=== PATIENT | female | born 1975 | race Caucasian/White ===

== ENCOUNTER 2020-10-09 03:04 | Outpatient (CLI) | payer SELFPAY ==
[2020-10-10 01:11] LABS: COVID-19 RT-PCR UVMMC Result Negative (Negative)
== END 2020-10-09 03:05 | disposition home or self-care (01) ==
LOC: LBO 03:05
PROVIDERS: Visit Provider Nurse Practitioner Family
DX: Z20.822 Contact with and (suspected) exposure to COVID-19 (principal)
CPT/HCPCS: U0003

== ENCOUNTER 2020-12-19 03:29 | Outpatient (CLI) | payer OTHER, SELFPAY ==
[2020-12-19 12:08] LABS: HCG Quant, Pregnancy 1 mIU/mL (1-3); TSH (W/Ref FT4) 2.85 uIU/mL (0.36-3.74)
[2020-12-19 18:31] LABS: FSH 5.9 mIU/mL (See Note); Prolactin 27.3 ng/mL (See Table)
== END 2020-12-19 03:30 | disposition home or self-care (01) ==
LOC: LBO 03:29
PROVIDERS: Visit Provider Obstetrics & Gynecology
DX: N93.8 Other specified abnormal uterine and vaginal bleeding (principal)
CPT/HCPCS: 36415; 83001; 84146; 84443; 84702

== ENCOUNTER 2020-12-20 11:06 | Day surgery (SDC) | payer OTHER, SELFPAY ==
[2020-12-20 11:29] VITALS: BP 104/74; PULSE 70; RESP 16; TEMP 36.6; O2SAT 98
[2020-12-20] MEDS: Sulfameth/Trimeth DS TAB 1 TAB PO (11:45)
[2020-12-20] MEDS: Lactated Ringers 1,000 ML 80 ML IV (11:58)
--- NOTE | 2020-12-20 12:01 | HPE_ITS ---
Date of service: 12/20/20 Time of Service: 12:02 Assessment and Plan Assessment and plan (1) Intrinsic (urethral) sphincter deficiency (ISD): Status: Acute Assessment and plan: For cystoscopy with transurethral injection of bulking agent at bladder neck History of Present Illness History of Present Illness Chief Complaint: Urinary incontinence - ISD Narrative: This is a 45-year-old woman who has a history of progressively worsening urinary incontinence. She began noticing leakage of urine after the of her first child in 2007. Her leakage tends to occur with activity, but over time, the leakage now tends to occur with minimal activity. She does not describe any urgency or urgency incontinence. She has no dysuria or gross hematuria. She has no episodes of retention. She has no issues with recurrent urinary tract infections. She wears a liner on a daily basis. She needs to change at least twice a day. She has had 1 previous vaginal delivery and one prior section. She has not had a hysterectomy or any type of pelvic radiation. She has no history of neurologic injuries. Review of Systems Narrative: No fevers or chills No vision change or dysphasia No diabetes or thyroid No shortness of breath, cough or hemoptysis No chest pain or palpitations No nausea, vomiting, hepatitis, ulcers, jaundice No seizures, strokes or peripheral neuropathy Being evaluated for uterine bleeding No gout [facility] Medical History (Updated 12/20/20 @ 12:07 by Arnaldo Palacios MD) Anxiety Depression DUB (dysfunctional uterine bleeding) Intrinsic (urethral) sphincter deficiency (ISD) Plantar fasciitis Surgical History H/O breast augmentation H/O foot surgery H/O: History of tubal ligation Social History (Updated 11/29/20 @ 11:15 by Arnaldo Palacios MD) Smoking/Tobacco Use Status: Never Smoking risk assessment performed?: Yes Alcohol Intake: current Alcohol Intake frequency: holidays/special occasions only Drug use: Never Substance use type: does not use Do you feel safe at home: Yes Do you feel safe in your relationship?: Yes Meds Allergies and Home Medications Allergies Allergy/AdvReac Type Severity Reaction Status Date / Time No Known Allergies Allergy Verified 12/20/20 11:38 Home Medications Medication Instructions Recorded Confirmed Type clonazepam 0.5 mg tablet 0.5 mg PO TID 11/29/20 12/20/20 History escitalopram oxalate 20 mg tablet 20 mg PO DAILY 11/29/20 12/20/20 History multivitamin 1 tab PO DAILY 11/29/20 12/20/20 History zolpidem 12.5 mg tablet,extended 12.5 mg PO QHS PRN 11/29/20 12/20/20 History release,multiphase Exam Const General: cooperative and comfortable Neck Neck: supple Resp Effort & Inspection: normal respiratory effort Auscultation: clear to auscultation bilaterally Cardio Rate: regular rate Rhythm: regular rhythm GI Palpation: soft Neuro General: patient alert, patient awake and patient oriented x3 Results Last Vital Signs Temp 36.6 C 12/20/20 11:29 Pulse 70 12/20/20 11:29 Resp 16 12/20/20 11:29 BP 104/74 12/20/20 11:29 Pulse Ox 98 12/20/20 11:29
--- NOTE | 2020-12-20 12:08 | W.ANESPRE ---
General Info Date of Service Date Performed: 12/20/20 Height: 5 ft 3 in Weight: 85.2 kg Body Mass Index (BMI): 33.3 Surgical Procedure: Operation Date: 12/20/20 12:40 Proposed Procedures Side Surgeon p Cystoscopy/Injection coaptite Arnaldo Palacios MD Actual Procedures Side Surgeon p Cystoscopy/Injection coaptite Not Applicable Arnaldo Palacios MD Pre-Op Diagnosis Post-Op Diagnosis (1) YEN (stress urinary incontinence, female): (2) Urethral sphincter deficiency, intrinsic (ISD) (1) YEN (stress urinary incontinence, female): (2) Urethral sphincter deficiency, intrinsic (ISD) Meds Allergies and Home Medications Allergies Allergy/AdvReac Type Severity Reaction Status Date / Time No Known Allergies Allergy Verified 12/20/20 11:38 Home Medication Medication Instructions Recorded clonazepam 0.5 mg tablet 0.5 mg PO TID 11/29/20 escitalopram oxalate 20 mg tablet 20 mg PO DAILY 11/29/20 multivitamin 1 tab PO DAILY 11/29/20 zolpidem 12.5 mg tablet,extended 12.5 mg PO QHS PRN 11/29/20 release,multiphase Current Visit Medications: Current Medications Generic Name Dose Route Start Last Admin Trade Name Freq PRN Reason Stop Dose Admin Ringer's Solution 1,000 mls @ 80 mls/hr 12/20/20 06:00 12/20/20 11:58 IV 01/18/21 23:59 80 mls/hr INFUSION KESHIA Administration IV Miscellaneous Supplies 1 each 12/20/20 06:00 Iv Access IV 01/18/21 23:59 DIRECTED KESHIA Sodium Chloride 0 ml 12/20/20 06:00 Normal Saline Flush 10 Ml Syr IV 01/18/21 23:59 PRN PRN Sodium Chloride 0 ml 12/20/20 06:00 Normal Saline 10 Ml Vial IJ 01/18/21 23:59 DIRECTED PRN Sterile Water 0 ml 12/20/20 06:00 Water,Injection,Sterile 10 Ml Vial IJ 01/18/21 23:59 DIRECTED PRN Trimethoprim/Sulfamethoxazole 1 tab 12/20/20 06:00 12/20/20 11:45 Sulfameth/Trimeth Ds Tab PO 12/20/20 16:00 1 tab PREOP KESHIA Administration PFSH Active Problems Active Problems: Problem Status Onset Code Intrinsic (urethral) sphincter deficiency (ISD) N36.42 DUB (dysfunctional uterine bleeding) N93.8 Medical History Medical History (Updated 12/20/20 @ 12:07 by Arnaldo Palacios MD) Anxiety Depression DUB (dysfunctional uterine bleeding) Intrinsic (urethral) sphincter deficiency (ISD) Plantar fasciitis Surgical History Surgical History H/O breast augmentation H/O foot surgery H/O: History of tubal ligation Tobacco Smoking/Tobacco Use Status: Never Alcohol Alcohol Intake: current Alcohol intake frequency: holidays/special occasions only Substance Use Substance use: Never Substance use type: does not use Vital Signs and Lab Results Vital Signs Most Recent Vital Signs in EMR: Most Recent Vital Signs Temp Pulse Resp BP Pulse Ox 36.6 C 70 16 104/74 98 12/20/20 11:29 12/20/20 11:29 12/20/20 11:29 12/20/20 11:29 12/20/20 11:29 Point of Care Results Point of Care Results: POC- Test(urine) Negative 12/20/20 12:07 Lab Results Blood Type / Crossmatch: No Data to Display Complete Blood Count: No Data to Display Complete Metabolic Panel: No Data to Display Liver Function Panel: No Data to Display Coagulation Panel: No Data to Display Cardiac Panel: No Data to Display Arterial Blood Gas: No Data to Display Venous Blood Gas: No Data to Display Pancreas Panel: No Data to Display Thyroid Panel: Thyroid Stimulating Hormone (TSH) 2.85 uIU/mL (0.36-3.74) 12/19/20 09:05 12/19/20 Infectious Disease: No Data to Display Blood Cultures: No Data to Display Toxicology Panel: No Data to Display Panel: Beta HCG, Quantitative 1 mIU/mL (1-3) 12/19/20 09:05 12/19/20 Anesthesia Assessment and Plan Anesthesia History Personal History: No History of Anesthesia Complications Family History: No Family History of Anesthesia Complications Exercise Tolerance Exercise Tolerance: Metabolic Equivalents>4 Pertinent Negatives Pertinent Negatives: No Symptoms of GERD, No Major Cardiovascular Symptoms or Complaints and No Major Pulmonary Symptoms or Complaints Cardiac & Pulmonary Exam Cardiac Exam: Normal S1/S2 Heart Sounds Pulmonary Exam: Clear Bilateral Breath Sounds Airway Exam Known Difficult Airway: No Mallampati Class: 1 Mouth Opening: Normal (> 3cm) Thyromental Distance: Greater than 3 cm Neck Range of Motion: Full ROM Neck Circumference: Normal Teeth Condition: Normal Dentition ASA Classification ASA Score: ASA 2 Emergency Case?: No NPO Status NPO Status: NPO Clears >2 hours, Solids >8 hours Status Status: Negative HCG Anesthesia Plan Resuscitation Status: Full Code Anesthesia Technique: MAC Anesthesia Airway Planned: Natural Airway Monitors Used: Standard Monitors
[2020-12-20 12:11] VITALS: BMI 33.3
[2020-12-20] MEDS: Lidocaine 2% Jelly 6 ML SYR (12:43)
--- NOTE | 2020-12-20 12:47 | W.PM.DSUDISC ---
Discharge Plan Disposition Patient Disposition: HOME Condition: Stable Discharge Details Reason For Visit: cystoscopy with Coaptite Attending Provider: Arnaldo Palacios Primary Care Provider: None,None Home Meds and New Rx's Prescriptions: No Action zolpidem [Ambien CR] 12.5 mg tablet,ext release multiphase 12.5 mg PO QHS PRNRF: 0 clonazepam [Klonopin] 0.5 mg tablet 0.5 mg PO TID RF: 0 escitalopram oxalate [Lexapro] 20 mg tablet 20 mg PO DAILY RF: 0 multivitamin Tablet 1 tab PO DAILY RF: 0 Discharge Instructions Additional Instructions: no appointment needed but ask pt to call office with progress report in 1 to 2 weeks Activity:: Activity as Tolerated Shower/Bathe:: 24 hours Diet:: As Tolerated Discharge Orders Discharge Orders: Discharge Order (Routine); Ordered 12/20/20 Ordered By: Arnaldo Palacios Discharge Data Discharge Comment: pt must void prior to discharge DS: Diagnosis Discharge Diagnosis (1) Intrinsic (urethral) sphincter deficiency (ISD): Status: Acute
--- NOTE | 2020-12-20 12:51 | W.PM.OP ---
Date of service: 12/20/20 Time of Service: 12:51 Operative Note Operative Note DATE OF PROCEDURE: 12/20/20 PRE-OP DIAGNOSIS: Urinary incontinence due to ISD POST-OP DIAGNOSIS: same PROCEDURE: cystoscopy with transurethral injection of Coaptite SURGEON: Arnaldo Palacios ANESTHESIA TYPE: Local By Surgeon and General:No Airway Refer to Anesthesia Record ESTIMATED BLOOD LOSS: 0 PATHOLOGY: none sent COMPLICATIONS: None Patient was transported to: same day Patient's condition: stable Implants: 1 vial Coaptite Indications: This is a 45-year-old woman she developed urinary incontinence following the of her first child. Initially, the incontinence occurred with activity, sitting she can be safe with very minimal activity. Patient presented for an injection of a bulking agent within the bladder neck. Findings: Excellent coaptation of the bladder neck when viewed cystoscopically Procedure Description: The patient was brought to the operating room on 12/20/2020. She was given a dose of preoperative antibiotics. After successful induction of general anesthesia without intubation, the patient was placed in the dorsal position. Her genitalia was prepped and draped. 2% Xylocaine jelly was instilled into the urethra to act as a local anesthetic. A 20 Marshallese urethrotome sheath was passed through the urethra into the bladder. The bladder was inspected using a 30 degree lens. No bladder tumors or stones were seen. Both ureteral orifices appeared normal in configuration and location. The scope was withdrawn into the bladder neck and the bladder neck was inspected. The bladder neck appeared open at rest. We then used a transurethral injection system to inject a total of 1 vial of Coaptite submucosally at the bladder neck. We injected 3 different locations The scope was removed. The bladder was drained with a 16 Marshallese catheter.
[2020-12-20 13:09] VITALS: BP 107/62; PULSE 76; RESP 16; TEMP 36.1; O2SAT 95
[2020-12-20 13:33] VITALS: BP 107/63; PULSE 70; RESP 16; TEMP 36.4; O2SAT 97
--- NOTE | 2020-12-20 13:41 | W.ANESPOSTOP ---
Postoperative Evaluation Date, Time and Location Date Performed: 12/20/20 Time Performed: 13:41 Patient Location: Day Surgery Unit Vital Signs Most Recent Imported Vital Signs: Most Recent Vital Signs Temp Pulse Resp BP Pulse Ox 36.4 C L 70 16 107/63 97 12/20/20 13:33 12/20/20 13:33 12/20/20 13:33 12/20/20 13:33 12/20/20 13:33 Pain Score Most Recent Pain Score: Most Recent Pain Score Pain Level 0 12/20/20 13:33 Assessment Mental Status: Awake (Alert & Oriented to Patient Baseline) Airway and Respiratory Function: Patent airway with normal (patient baseline) respiratory exam Cardiovascular Function: Hemodynamically Stable Hydration Status: Adequately Hydrated Nausea & Vomiting: No Nausea or Vomiting Pain: Pt. Denies Any Pain Peripheral Nerve Block: Patient did not receive a nerve block
== END 2020-12-20 13:50 | disposition home or self-care (01) ==
PROVIDERS: Visit Provider Urology
PROC: (CPT 51715; principal; 2020-12-20 12:30)
DX: N36.42 Intrinsic sphincter deficiency (ISD) (principal); F41.9 Anxiety disorder, unspecified; F32.9 Major depressive disorder, single episode, unspecified
CPT/HCPCS: 51715; 81025; J1885; J2001; J2405; J3010; L8606

== ENCOUNTER 2020-12-31 09:29 | Outpatient (CLI) | payer OTHER, SELFPAY ==
--- NOTE | 2020-12-31 09:15 | DI.MAMMO_ITS ---
Exam(s) MAMMO SCREENING EXAM: MAMMO SCREENING CLINICAL HISTORY: screening, Z12.39. TECHNIQUE: Bilateral full field digital CC and MLO mammographic images were obtained with 3D tomosyn thesis and utilizing computer aided detection (CAD). Both conventional and breast implant displacemen t views were performed. COMPARISON: None. This is a baseline this 45-year-old patient FINDINGS: There are bilateral retropectoral silicone implants. Posteriorly in the left breast there is a 12 by 7 millimeter nodule located approximately 5 cm in fro m the nipple. No malignant-appearing microcalcification groups is region or elsewhere in either [address]. No focal findings in the right breast There is no significant architectural distortion nor skin thickening-retraction. IMPRESSION: 1. 12 x 7 millimeter asymmetric density-possible nodule seen posteriorly in left breast. Recommend u ltrasound. 2. No significant radiograph findings in the right breast. 3. Intact bilateral retropectoral silicone implants. BI-RADS Category 0 - Assessment Incomplete: Need additional imaging evaluation Breast Density - Category B - Scattered areas of fibroglandular density Breast density Category C or D implies that the patient has dense breast tissue. Dense breast tissue can make it harder to find cancer on a mammogram. Dense breast tissue is also associated with an incr eased risk of breast cancer. This information about the result of the mammogram report was provided to the patient to raise their awareness. Use this report when you speak with the patient about their risks for breast cancer, which includes their family history. At that time, you may recommend additional screening tests (Ultrasoun d or MRI) as these tests may add significant information. A negative radiographic report should not delay biopsy if a dominant or clinically suspicious mass is present. Up to ten percent of cancers are not identified on mammography. A negative report may reinforce clinical impression. Adenosis and dense breasts may obscure an underlying neoplasm. False positive reports average 6 to 10%. Patient will receive a letter notifying them of these results.
== END 2020-12-31 09:49 ==
PROVIDERS: Visit Provider Obstetrics & Gynecology
DX: Z12.31 Encounter for screening mammogram for malignant neoplasm of breast (principal); R92.8 Other abnormal and inconclusive findings on diagnostic imaging of breast; R92.2 Inconclusive mammogram; Z98.82 Breast implant status
CPT/HCPCS: 77063; 77067